=== PATIENT | male | born 1955 | race Caucasian/White ===

== ENCOUNTER → 2016-04-22 | Day surgery (SDC) | payer BC ==
[2016-04-14 14:51] VITALS: Ht 180.3 cm; Wt 95.5 kg
[~2016-04-22] VITALS: Ht 180.3 cm; Wt 95.5 kg
[~2016-04-22] MED LIST: ASPI81TA28 PO; ATOR10TA88 PO; ATROPINE SULFATE 0.1 MG/ML 5ML SYR IV PRN; BUPIVACAINE 0.5 % 5 MG/1 ML MPF 30ML VIAL ONE; CEFAZOLIN 2000 MG/60 ML D5W IV SCH; CEFAZOLIN SOD 1 GM VIAL ONE; CEPH500C2 PO; CHOL1000 PO; CLR10 PO; COEN75CA PO; DEXAMETHASONE SOD INJ 4 MG/ML VIAL ONE; EpHEDrine SULFATE INJ 50 MG/ML AMP IV PRN; FENTANYL CITRATE INJ 50 MCG/1 ML 2 ML VIAL IV PRN; FENTANYL CITRATE INJ 50 MCG/1 ML 2 ML VIAL ONE; HYDR-5688 PO; HYDROCODONE/ACETAMOPHEN 5/325MG TAB PO PRN; HYDROmorphone INJ 1 MG/ML SYR IV PRN; LACTATED RINGER'S 1000ML 1,000 ML IV SCH; LIDOCAINE HCL 2% 2 ML VIAL (20MG/ML) ONE; LUTE20CA PO; MIDAZOLAM HCL 1 MG/ML 2ML VIAL ONE; MULT-506 PO; ONDANSETRON INJ 2 MG/ML 2 ML VIAL IV PRN; ONDANSETRON INJ 2 MG/ML 2 ML VIAL ONE; PROPOFOL IV EMULSION 10 MG/ML 20 ML VIAL IV ONE; SODIUM CHLORIDE 0.9% 1000ML 1,000 ML IV SCH; SODIUM CHLORIDE 0.9% INJ 10 ML VIAL ONE
--- NOTE | 2016-04-22 06:50 | History & Physical Bridge - [place] ---
H&P Re-Evaluation Bridge Note: I have examined the patient, reviewed the History & Physical and in the interval since the performance of the History & Physical I have noted the following changes of clinical significance: No changes noted
--- NOTE | 2016-04-22 06:59 | Discharge Instructions-SurgCtr ---
Discharge Instructions Visit Reason for Visit: Right Inguinal Hernia Discharge Discharge Diagnosis / Problem: Rt inguinal hernia Discharge Goals Goal(s): Decrease discomfort, Improve function, Improve disease control Medications Stopped Medications Name(s): ASA last dose 10 days ago Activity Recommendations Activity Limitations: as noted below (less than 20 lbs- lifting) Exercise/Sports Limitations: until after follow-up appointment May Resume Sexual Activity: when tolerated Shower/Bathe: keep incision dry (may shower over incision on Sun 04/24) Driving or Machine Use: 4-5 days SPECIAL CARE INSTRUCTIONS: * Cover incisions and change daily for comfort/drainage. * Leave steri strips in place * Avoid constipation- may use Senokot S and Milk of magnesia twice daily as directed on the package * May use ibuprofen for pain as tolerated. * Expect some swelling and bruising. Call your doctor if: * Temperature above 101 degrees * Pain not relieved by pain medicine ordered * There is increased drainage or redness from any incision * You have any unanswered questions or concerns [phone]. FOLLOW UP VISIT: If not already scheduled, please call the office for a follow-up visit. next week as scheduled OFFICE PHONE NUMBER: Dr. Molina Office Anesthesia . Post Anesthesia Instructions: If you have had General Anesthesia or IV Sedation: * Do not drive today. * Resume driving when surgeon permits. * Do not make important decisions or sign legal documents today. * Call surgeon for: 1. Temperature elevations greater than 101 degrees F. 2. Uncontrollable pain. 3. Excessive bleeding. 4. Persistent nausea and vomiting. 5. Medication intolerance (nausea, vomiting or rash). * For nausea and vomiting use only clear liquids such as: tea, soda, bouillon until nausea subsides, then gradually increase diet as tolerated. * If you have any concerns or questions, call your surgeon's office. If physician is unavailable and it is an emergency, call 911 or go to the nearest emergency room. . Medical Emergencies . Who to Call and When: Medical Emergencies: If at any time you feel your situation is an emergency, please call 911 immediately. . Non-Emergent Contact . . "Provider Documentation" section prepared by Dexter Molina.
--- NOTE | 2016-04-22 07:53 | [facility] Operative Report ---
Operative Report Operative Date Apr 22, 2016. Pre-Operative Diagnosis Right Inguinal Hernia Post-Operative Diagnosis same Procedure(s) Performed Open Rt inguinal hernia repair Surgeon Dr. Molina Smt Machine Operator Surgeon(s) Kayleigh Olson PA-C Estimated Blood Loss 20 ml Findings direct defect Specimens None Anesthesia gen/ LMA Complication(s) None Disposition Recovery Room / PACU I attest to the content of the Intraoperative Record and any orders documented therein. Any exceptions are noted below.
--- NOTE | 2016-04-22 08:08 | OPERATIVE REPORT ---
DATE OF OPERATION: 04/22/2016 NAME OF OPERATION: Open right inguinal hernia repair. PREOPERATIVE DIAGNOSIS: Right inguinal hernia. POSTOPERATIVE DIAGNOSIS: Same with direct defect. STAFF SURGEON: Dr. Molina. FOOD ANALYST: Aristeo Olson PA-C. ANESTHESIA: General LMA. DESCRIPTION OF PROCEDURE: The patient was brought in the operating room and placed on the operating table in supine position. His lower abdomen was prepped and draped in usual fashion. 0.5% plain Marcaine was used to anesthetize the skin and subcutaneous tissue and also the deep tissue. Incision was made carrying dissection down through adipose tissue, identifying the external oblique fibers, incising them along their length to the external ring, identifying the ilioinguinal and iliohypogastric nerves. The cord structures were mobilized. It was apparent the patient had a direct inguinal hernia. There was no indirect defect. The direct defect was dissected away from the cord structures and reduced. A large mesh plug was placed into the defect, secured to surrounding tissue using 2-0 Ethibond suture. The transversalis fascia and inguinal ligament were able to be partially reapproximated in this area. A large mesh patch was then placed into the floor of the canal around the cord structures secured to surrounding tissue using 2-0 Ethibond suture. The site was irrigated with antibiotic solution. The external oblique fibers closed over the mesh around the cord structures using 2-0 Ethibond suture. Subcutaneous tissue reapproximated using 2-0 plain catgut suture then the skin reapproximated using interrupted 4-0 nylon and Steri-Strips. The patient was transferred to recovery room in stable condition. I attest to the content of the Intraoperative Record and any orders documented therein. Any exceptio ns are noted below.
[2016-04-22 09:12] VITALS: TEMP 36.1
--- NOTE | 2016-04-22 09:20 | Anesthesiology Progress Note ---
Anesthesia Post Op Note Date & Time Apr 22, 2016 at 09:20 Vital Signs Pain Intensity: 0 Vital Signs Past 12 Hours Date Time Temp Pulse Resp B/P Pulse Ox O2 Delivery O2 Flow Rate FiO2 04/22/16 09:12 36.1 48 16 135/81 96 Room Air 04/22/16 08:53 48 3 117/72 97 04/22/16 08:53 47 6 98 04/22/16 08:52 36.3 43 12 117/72 98 Room Air 04/22/16 08:48 44 6 04/22/16 08:48 44 6 124/76 97 04/22/16 08:43 134/77 04/22/16 08:38 44 10 99 04/22/16 08:38 48 7 118/69 98 04/22/16 08:33 44 0 127/76 97 04/22/16 08:33 45 0 04/22/16 08:28 128/78 04/22/16 08:23 53 6 130/76 98 04/22/16 08:23 51 4 98 04/22/16 08:18 50 10 136/75 100 04/22/16 08:18 49 10 04/22/16 08:13 140/78 04/22/16 08:08 43 6 100 04/22/16 08:08 49 13 133/84 100 04/22/16 08:03 45 18 136/79 100 04/22/16 08:03 45 18 04/22/16 08:03 36.3 57 12 139/80 100 Mask 6 04/22/16 06:28 36.8 62 16 133/91 98 Room Air Notes Mental Status: alert / awake / arousable, participated in evaluation Pt Amnestic to Procedure: Yes Nausea / Vomiting: adequately controlled Pain: adequately controlled Airway Patency, RR, SpO2: stable & adequate BP & HR: stable & adequate Hydration State: stable & adequate Anesthetic Complications: no major complications apparent
[2016-04-22 09:41] VITALS: BP 124/79; PULSE 50; O2SAT 99
== END | disposition home or self-care (01) ==
LOC: X.SURG 06:04
PROVIDERS: ATTEND Surgery
DX: K40.90 Unilateral inguinal hernia, without obstruction or gangrene, not specified as recurrent (principal); Z98.52 Vasectomy status; Z82.49 Family history of ischemic heart disease and other diseases of the circulatory system; Z82.3 Family history of stroke; Z83.3 Family history of diabetes mellitus; Z79.82 Long term (current) use of aspirin

== ENCOUNTER 2017-07-27 10:42 | Emergency (ER) | payer BC, OTHER ==
[~2017-07-27] VITALS: Ht 180.3 cm; Wt 81.4 kg
[~2017-07-27 10:42] MED LIST changes: +ATOR10TA82 PO; -ATOR10TA88 PO; -ATROPINE SULFATE 0.1 MG/ML 5ML SYR IV PRN; -BUPIVACAINE 0.5 % 5 MG/1 ML MPF 30ML VIAL ONE; -CEFAZOLIN 2000 MG/60 ML D5W IV SCH; -CEFAZOLIN SOD 1 GM VIAL ONE; -CEPH500C2 PO; -DEXAMETHASONE SOD INJ 4 MG/ML VIAL ONE; -EpHEDrine SULFATE INJ 50 MG/ML AMP IV PRN; -FENTANYL CITRATE INJ 50 MCG/1 ML 2 ML VIAL IV PRN; -FENTANYL CITRATE INJ 50 MCG/1 ML 2 ML VIAL ONE; -HYDR-5688 PO; -HYDROCODONE/ACETAMOPHEN 5/325MG TAB PO PRN; -HYDROmorphone INJ 1 MG/ML SYR IV PRN; -LACTATED RINGER'S 1000ML 1,000 ML IV SCH; -LIDOCAINE HCL 2% 2 ML VIAL (20MG/ML) ONE; -MIDAZOLAM HCL 1 MG/ML 2ML VIAL ONE; -ONDANSETRON INJ 2 MG/ML 2 ML VIAL IV PRN; -ONDANSETRON INJ 2 MG/ML 2 ML VIAL ONE; -PROPOFOL IV EMULSION 10 MG/ML 20 ML VIAL IV ONE; -SODIUM CHLORIDE 0.9% 1000ML 1,000 ML IV SCH; -SODIUM CHLORIDE 0.9% INJ 10 ML VIAL ONE
[2017-07-27 10:46] VITALS: Ht 180.3 cm; Wt 81.4 kg
[2017-07-27] MEDS ORDERED: CEFTRIAXONE SOD INJ 1 GM ADDVIAL IV STA (11:05)
[2017-07-27] MEDS ORDERED: BUPIVACAINE 0.5 % 5 MG/1 ML MPF 30ML VIAL INFIL ONE (11:15)
[2017-07-27] MEDS ORDERED: DIPHTHERIA/TETANUS/PERTUSSIS 0.5 ML SYR/VIAL IM. ONE (11:15)
[2017-07-27] MEDS ORDERED: LIDOCAINE 1% BUFFERED INJ 5 ML VIAL INFIL ONE (11:15)
[2017-07-27 11:40] LABS: BASO % 0.5 %; BASO ABS # 0.03 K/uL (0-0.2); EOS % 4.7 %; EOS ABS # 0.28 K/uL (0-0.5); HEMATOCRIT 34.4 % (42-52); HEMOGLOBIN 11.1 g/dL (14.0-18.0); IG# 0.01 K/uL (0.00-0.02); LYMPH % 37.2 %; LYMPH ABS # 2.23 K/uL (1.2-3.4); MEAN CELL VOLUME 58.7 fL (80-100); MEAN CORPUSCULAR HEMOGLOBIN 18.9 pg (25-34); MEAN CORPUSCULAR HGB CONC 32.3 g/dl (32-36); MONO ABS # 0.48 K/uL (0.11-0.59); NEUT % 49.4 %; NEUT ABS # 2.96 K/uL (1.4-6.5); PLATELET COUNT 225 K/uL (130-400); RED CELL DISTRIBUTION WIDTH CV 16.7 % (11.5-14.5); RED CELL DISTRIBUTION WIDTH SD 34.8 fL (36.4-46.3); WHITE BLOOD COUNT 5.99 K/uL (4.8-10.8)
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
[2017-07-27 11:56] LABS: ALBUMIN 3.9 gm/dl (3.4-5.0); CREATININE 0.86 mg/dl (0.60-1.40); POTASSIUM 3.8 mmol/L (3.5-5.1)
[2017-07-27] MEDS ORDERED: MULT-845 PO (11:57)
[2017-07-27] MEDS ORDERED: LUTE20TA PO (11:57)
[2017-07-27 11:59] LABS: TOTAL PROTEIN 7.6 gm/dl (6.4-8.2)
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
[2017-07-27 12:54] LABS: HEP C IGG 13 YRS+OLDER_RFLX NEG (NEG)
[2017-07-27] MEDS ORDERED: OXYC-57 PO (14:51)
[2017-07-27] MEDS ORDERED: CEPH500C PO (14:51)
[2017-07-27 15:15] VITALS: BP 162/88; PULSE 56; TEMP 36.8; O2SAT 100
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
== END 2017-07-27 15:17 | disposition home or self-care (01) ==
LOC: C.EDB 10:43 → C.EDC 15:17
DX: S61.207A Unspecified open wound of left little finger without damage to nail, initial encounter (principal); S61.205A Unspecified open wound of left ring finger without damage to nail, initial encounter; W32.0XXA Accidental handgun discharge, initial encounter; Y92.009 Unspecified place in unspecified non-institutional (private) residence as the place of occurrence of the external cause; E78.5 Hyperlipidemia, unspecified; Z79.82 Long term (current) use of aspirin; Z79.899 Other long term (current) drug therapy; Z23 Encounter for immunization